=== PATIENT | female | born 1960 | race Caucasian/White ===

== ENCOUNTER 2017-05-26 16:39 | Inpatient (IN) | payer OTHER ==
[~2017-05-26] VITALS: Ht 144.8 cm; Wt 36.3 kg
[2017-05-26] MEDS ORDERED: MIRALAX 17 GM POWD.PACK PO PRN (20:15)
[2017-05-26] MEDS ORDERED: DICYCLOMINE HCL 20 MG TABLET PO PRN (20:15)
[2017-05-26] MEDS ORDERED: THIAMINE HCL 200 MG/2 ML VIAL IM ONE (20:15)
[2017-05-26] MEDS ORDERED: ONDANSETRON 4 MG/2 ML VIAL IM PRN (20:15)
[2017-05-26] MEDS ORDERED: LOPERAMIDE HCL 2 MG CAPSULE PO PRN ×2 (20:15)
[2017-05-26] MEDS ORDERED: LORAZEPAM 2 MG/1 ML VIAL IM PRN (20:15)
[2017-05-26] MEDS ORDERED: NICOTINE 14 MG/24HR PATCH TD PRN (20:15)
[2017-05-26] MEDS ORDERED: LORAZEPAM 1 MG TABLET PO PRN ×2 (20:15)
[2017-05-26] MEDS ORDERED: diphenhydrAMINE 50 MG CAPSULE PO PRN (20:15)
[2017-05-26] MEDS ORDERED: MAGNESIUM HYDROXIDE 30 ML LIQUID UDC PO PRN (20:15)
[2017-05-26] MEDS ORDERED: MAG HYDROX/AL HYDROX/SIMETH 30 ML LIQUID UDC PO PRN (20:15)
[2017-05-26] MEDS ORDERED: CLONIDINE HCL 0.1 MG TABLET PO PRN (20:15)
[2017-05-26] MEDS ORDERED: NICOTINE POLACRILEX 4 MG GUM-PK OF TEN BC PRN (20:15)
[2017-05-26 20:43] LABS: *URINE HCG, QUAL NEGATIVE (NEGATIVE)
[2017-05-26 20:45] LABS: BASOPHILS # (AUTO) 0.1 K/uL (0.0-8.0); BASOPHILS % (AUTO) 0.4 % (0.0-2.0); HEMOGLOBIN 12.1 g/dL (10.9-14.3); LYMPHOCYTES # (AUTO) 0.8 K/uL (20.0-40.0); LYMPHOCYTES % (AUTO) 5.4 % (20.5-51.5); MEAN CORPUSCULAR HEMOGLOBIN 24.5 uug (24.7-32.8); MEAN CORPUSCULAR HGB CONC 32 g/dL (32.3-35.6); MEAN CORPUSCULAR VOLUME 76.7 fL (75.5-95.3); MONOCYTES # (AUTO) 1.1 K/uL (2.0-10.0); NEUTROPHILS # (AUTO) 12.2 K/uL (1.8-8.9); NEUTROPHILS % (AUTO) 86.2 % (38.5-71.5); PLATELET COUNT (AUTO) 247 K/uL (179-408); RED BLOOD CELL COUNT(AUTO) 4.95 MIL/uL (3.63-4.92); WHITE BLOOD COUNT (AUTO) 14.2 K/uL (3.8-11.8)
[2017-05-26 20:55] LABS: BILIRUBIN,TOTAL 0.2 mg/dL (0.2-1.0); MAGNESIUM 2.1 mg/dL (1.8-2.4); POTASSIUM 4.6 mmol/L (3.5-5.1); TOTAL PROTEIN, SERUM 6.5 g/dL (6.4-8.2)
[2017-05-26] MEDS ORDERED: LORAZEPAM 1 MG TABLET PO SCH (21:00)
[2017-05-26 22:29] LABS: BAND % (MANUAL) 20 % (0-10); LYMPHOCYTES % (MANUAL) 4 % (20-40); MONOCYTES % (MANUAL) 6 % (2-10); NEUTROPHILS % (MANUAL) 70 % (42-75)
[2017-05-26] MEDS: ONDANSETRON ODT 4 MG TAB.RAPDIS SL PRN (22:48)
[2017-05-26] MEDS: BACLOFEN 20 MG TABLET PO PRN (22:48)
[2017-05-26] MEDS ORDERED: FOLI-97 PO (22:54)
[2017-05-26] MEDS ORDERED: IPRA3AMP IH (22:54)
[2017-05-26] MEDS ORDERED: ALBU8.5H8 INH (22:54)
[2017-05-26] MEDS ORDERED: MENT56CR TP (22:54)
[2017-05-26] MEDS ORDERED: ASPI1TAB32 PO (22:54)
[2017-05-26] MEDS: ACETAMINOPHEN 325 MG TABLET PO PRN (22:58)
[2017-05-26 23:02] LABS: *AMPHETAMINE, URINE NEGATIVE (NEGATIVE); *BARBITURATE, URINE NEGATIVE (NEGATIVE); *CANNABINOID, URINE NEGATIVE (NEGATIVE); *COCCAINE, URINE NEGATIVE (NEGATIVE); *OPIATE, URINE NEGATIVE (NEGATIVE); *PHENCYCLIDINE SCREEN,URINE NEGATIVE (NEGATIVE)
[2017-05-27 00:10] VITALS: BP 113/77
[2017-05-27 04:00] VITALS: BP 127/74
[2017-05-27] MEDS ORDERED: QUET200T PO (05:15)
[2017-05-27] MEDS ORDERED: Lisinopril PO (05:15)
[2017-05-27] MEDS ORDERED: Soma (05:15)
[2017-05-27] MEDS ORDERED: BACL20TA PO (05:15)
[2017-05-27] MEDS ORDERED: METH-406 PO (05:15)
[2017-05-27] MEDS ORDERED: GABA600T2 PO (05:15)
[2017-05-27] MEDS ORDERED: PANT40TA2 PO (05:15)
[2017-05-27] MEDS ORDERED: AMIT25TA9 PO (05:15)
[2017-05-27] MEDS: PANTOPRAZOLE SODIUM 40 MG TABLET.DR PO SCH (06:49)
[2017-05-27 08:00] VITALS: BP 109/72
[2017-05-27] MEDS: THIAMINE HCL 100 MG TABLET PO SCH (08:53)
[2017-05-27] MEDS: BACLOFEN 20 MG TABLET PO PRN ×3 (08:53→21:53)
[2017-05-27] MEDS: FOLIC ACID 1 MG TABLET PO SCH (08:53)
[2017-05-27] MEDS: LORAZEPAM 1 MG TABLET PO SCH ×3 (08:53→21:53)
[2017-05-27] MEDS: LISINOPRIL 10 MG TABLET PO SCH (08:54)
[2017-05-27] MEDS: MULTIVITAMINS,THERAPEUTIC TABLET PO SCH (08:54)
[2017-05-27] MEDS ORDERED: TUBERCULIN,PURIF.PROT.DERIV. 5 TU/0.1 ML TEST ID ONE (09:00)
[2017-05-27] MEDS: ALBUTEROL SULFATE 1.25 MG/3 ML NEBU NEB PRN (09:16)
[2017-05-27] MEDS ORDERED: GUAIFENESIN/DEXTROMETHORPHAN TAB.SR.12H PO PRN (11:15)
[2017-05-27] MEDS ORDERED: NORMAL SALINE NASAL 45 ML BOTTLE NS PRN (11:15)
[2017-05-27 12:00] VITALS: BP 105/56
[2017-05-27] MEDS: IBUPROFEN 400 MG TABLET PO PRN ×2 (14:21→21:53)
[2017-05-27] MEDS: GABAPENTIN 300 MG CAPSULE PO SCH ×2 (14:21→21:53)
[2017-05-27 16:00] VITALS: BP 76/43
[2017-05-27] MEDS: NEOMY/BACITRAC/POLYMI OINT 28.35 GM TUBE TOP SCH (16:49)
[2017-05-27] MEDS ORDERED: QUETIAPINE FUMARATE 100 MG TABLET PO PRN (18:45)
[2017-05-27 20:00] VITALS: BP 118/92
[2017-05-28] VITALS: BP 120/81
[2017-05-28 04:00] VITALS: BP 91/52
[2017-05-28] MEDS: PANTOPRAZOLE SODIUM 40 MG TABLET.DR PO SCH (06:44)
[2017-05-28 07:43] LABS: BILIRUBIN,DIRECT 0.1 mg/dL (0.0-0.2); BILIRUBIN,TOTAL 0.2 mg/dL (0.2-1.0); CREATININE 0.7 mg/dL (0.6-1.3); MAGNESIUM 1.9 mg/dL (1.8-2.4); POTASSIUM 4.4 mmol/L (3.5-5.1); TOTAL PROTEIN, SERUM 5.9 g/dL (6.4-8.2)
[2017-05-28 07:50] LABS: BASOPHILS % (AUTO) 0.5 % (0.0-2.0); EOSINOPHILS # (AUTO) 0.1 K/uL (0.0-0.7); EOSINOPHILS % (AUTO) 0.8 % (0.0-7.0); HEMATOCRIT 40.1 % (31.2-41.9); LYMPHOCYTES % (AUTO) 11.7 % (20.5-51.5); MEAN CORPUSCULAR HEMOGLOBIN 25.1 uug (24.7-32.8); MEAN CORPUSCULAR HGB CONC 32 g/dL (32.3-35.6); MEAN CORPUSCULAR VOLUME 77.4 fL (75.5-95.3); MONOCYTES # (AUTO) 0.6 K/uL (2.0-10.0); MONOCYTES % (AUTO) 6.3 % (0.0-11.0); NEUTROPHILS # (AUTO) 7.1 K/uL (1.8-8.9); NEUTROPHILS % (AUTO) 80.7 % (38.5-71.5); PLATELET COUNT (AUTO) 229 K/uL (179-408); RED BLOOD CELL COUNT(AUTO) 5.19 MIL/uL (3.63-4.92)
[2017-05-28 07:55] LABS: WHITE BLOOD COUNT (AUTO) 8.8 K/uL (3.8-11.8)
[2017-05-28] MEDS: FOLIC ACID 1 MG TABLET PO SCH (09:09)
[2017-05-28] MEDS: LISINOPRIL 10 MG TABLET PO SCH (09:09)
[2017-05-28] MEDS: THIAMINE HCL 100 MG TABLET PO SCH (09:09)
[2017-05-28] MEDS: GABAPENTIN 300 MG CAPSULE PO SCH ×3 (09:09→21:40)
[2017-05-28] MEDS: MULTIVITAMINS,THERAPEUTIC TABLET PO SCH (09:09)
[2017-05-28] MEDS: LORAZEPAM 1 MG TABLET PO SCH ×4 (09:09→21:40)
[2017-05-28] MEDS: NEOMY/BACITRAC/POLYMI OINT 28.35 GM TUBE TOP SCH ×2 (09:10→17:15)
[2017-05-28 09:32] VITALS: BP 123/86
[2017-05-28 10:21] LABS: BAND % (MANUAL) 1 % (0-10); EOSINOPHILS % (MANUAL) 1 % (0-8); LYMPHOCYTES % (MANUAL) 13 % (20-40); MONOCYTES % (MANUAL) 7 % (2-10); NEUTROPHILS % (MANUAL) 78 % (42-75)
[2017-05-28 12:06] LABS: HEPATITIS B SURFACE AG Negative (Negative)
[2017-05-28 12:45] VITALS: BP 102/66
[2017-05-28 17:51] VITALS: BP 90/60
[2017-05-28 20:00] VITALS: BP 112/71
[2017-05-28] MEDS: QUETIAPINE FUMARATE 100 MG TABLET PO PRN (21:40)
[2017-05-28] MEDS: BACLOFEN 20 MG TABLET PO PRN (21:40)
[2017-05-29] VITALS: BP 91/63
[2017-05-29 04:00] VITALS: BP 98/59
[2017-05-29] MEDS: PANTOPRAZOLE SODIUM 40 MG TABLET.DR PO SCH (07:03)
[2017-05-29] MEDS: MULTIVITAMINS,THERAPEUTIC TABLET PO SCH (08:29)
[2017-05-29] MEDS: FOLIC ACID 1 MG TABLET PO SCH (08:29)
[2017-05-29] MEDS: GABAPENTIN 300 MG CAPSULE PO SCH ×3 (08:29→20:13)
[2017-05-29] MEDS: THIAMINE HCL 100 MG TABLET PO SCH (08:29)
[2017-05-29] MEDS: LORAZEPAM 1 MG TABLET PO SCH ×3 (08:29→20:14)
[2017-05-29] MEDS: LISINOPRIL 10 MG TABLET PO SCH (08:30)
[2017-05-29] MEDS: NEOMY/BACITRAC/POLYMI OINT 28.35 GM TUBE TOP SCH ×2 (08:31→16:46)
[2017-05-29 08:40] VITALS: BP 97/64
[2017-05-29] MEDS ORDERED: LEVOFLOXACIN 750MG/D5W 750 MG in PREMIXED 1 EACH IV SCH (11:00)
[2017-05-29] MEDS: IV D5 1/2 NS 1000 ML 1,000 ML IV PRN ×2 (12:15→22:16)
[2017-05-29 12:57] VITALS: BP 104/75
[2017-05-29] MEDS: BACLOFEN 20 MG TABLET PO PRN ×2 (13:40→20:14)
[2017-05-29 17:42] VITALS: BP 115/81
[2017-05-29 20:00] VITALS: BP 113/90
[2017-05-29] MEDS: IBUPROFEN 400 MG TABLET PO PRN (20:13)
[2017-05-29] MEDS: QUETIAPINE FUMARATE 100 MG TABLET PO PRN (20:14)
[2017-05-29] MEDS: LACTOBACILLUS RHAMNOSUS GG 1 EACH CAPSULE PO SCH (20:14)
[2017-05-30] VITALS (7 sets, daily range): BP systolic 88–125; BP diastolic 63–92
[2017-05-30] MEDS: PANTOPRAZOLE SODIUM 40 MG TABLET.DR PO SCH (06:51)
[2017-05-30] MEDS: IV D5 1/2 NS 1000 ML 1,000 ML IV PRN ×2 (06:51→23:15)
[2017-05-30] MEDS: IBUPROFEN 400 MG TABLET PO PRN ×2 (06:56→15:05)
[2017-05-30 08:11] LABS: CREATININE 0.7 mg/dL (0.6-1.3); MAGNESIUM 1.5 mg/dL (1.8-2.4); PHOSPHOROUS 3.3 mg/dL (2.5-4.9); POTASSIUM 4.1 mmol/L (3.5-5.1)
[2017-05-30] MEDS: THIAMINE HCL 100 MG TABLET PO SCH (08:16)
[2017-05-30] MEDS: FOLIC ACID 1 MG TABLET PO SCH (08:16)
[2017-05-30] MEDS: MULTIVITAMINS,THERAPEUTIC TABLET PO SCH (08:16)
[2017-05-30] MEDS: LACTOBACILLUS RHAMNOSUS GG 1 EACH CAPSULE PO SCH ×2 (08:16→21:34)
[2017-05-30] MEDS: GABAPENTIN 300 MG CAPSULE PO SCH ×3 (08:16→21:34)
[2017-05-30] MEDS: ACETAMINOPHEN 325 MG TABLET PO PRN ×2 (08:16→21:35)
[2017-05-30] MEDS: LISINOPRIL 10 MG TABLET PO SCH (08:19)
[2017-05-30 08:24] LABS: BASOPHILS % (AUTO) 0.4 % (0.0-2.0); EOSINOPHILS # (AUTO) 0.1 K/uL (0.0-0.7); EOSINOPHILS % (AUTO) 1.6 % (0.0-7.0); HEMATOCRIT 38.7 % (31.2-41.9); HEMOGLOBIN 12.7 g/dL (10.9-14.3); LYMPHOCYTES # (AUTO) 1.2 K/uL (20.0-40.0); LYMPHOCYTES % (AUTO) 14.3 % (20.5-51.5); MEAN CORPUSCULAR HEMOGLOBIN 25.4 uug (24.7-32.8); MEAN CORPUSCULAR HGB CONC 33 g/dL (32.3-35.6); MEAN CORPUSCULAR VOLUME 77.5 fL (75.5-95.3); MONOCYTES # (AUTO) 0.7 K/uL (2.0-10.0); MONOCYTES % (AUTO) 8.3 % (0.0-11.0); NEUTROPHILS # (AUTO) 6.2 K/uL (1.8-8.9); NEUTROPHILS % (AUTO) 75.4 % (38.5-71.5); PLATELET COUNT (AUTO) 248 K/uL (179-408); WHITE BLOOD COUNT (AUTO) 8.2 K/uL (3.8-11.8)
[2017-05-30] MEDS ORDERED: LORAZEPAM 1 MG TABLET PO SCH (09:00)
[2017-05-30] MEDS: LEVOFLOXACIN 750 MG TABLET PO SCH (09:08)
[2017-05-30] MEDS: NEOMY/BACITRAC/POLYMI OINT 28.35 GM TUBE TOP SCH (09:08)
[2017-05-30] MEDS ORDERED: MAGNESIUM OXIDE 400 MG TABLET PO ONE (11:00)
[2017-05-30] MEDS: LORAZEPAM 1 MG TABLET PO SCH ×2 (15:05→21:34)
[2017-05-30] MEDS ORDERED: CLON0.1T14 PO (19:49)
[2017-05-30] MEDS ORDERED: DIPH50CA37 PO (19:49)
[2017-05-30] MEDS ORDERED: GABA-534 PO (19:49)
[2017-05-30] MEDS ORDERED: LEVO750T21 PO (19:49)
[2017-05-30] MEDS ORDERED: PANT40TA2 PO (19:49)
[2017-05-30] MEDS ORDERED: LISI10TA5 PO (19:49)
[2017-05-30] MEDS: BACLOFEN 20 MG TABLET PO PRN (21:35)
[2017-05-30] MEDS: QUETIAPINE FUMARATE 100 MG TABLET PO PRN (21:35)
[2017-05-31] VITALS: BP 106/68
[2017-05-31 04:00] VITALS: BP 114/78
[2017-05-31] MEDS: PANTOPRAZOLE SODIUM 40 MG TABLET.DR PO SCH (06:42)
[2017-05-31] MEDS: IV D5 1/2 NS 1000 ML 1,000 ML IV PRN (06:48)
[2017-05-31 08:00] VITALS: BP 132/88
[2017-05-31] MEDS ORDERED: LORAZEPAM 1 MG TABLET PO SCH (09:00)
[2017-05-31] MEDS: GABAPENTIN 300 MG CAPSULE PO SCH ×3 (09:10→20:15)
[2017-05-31] MEDS: IBUPROFEN 400 MG TABLET PO PRN ×2 (09:10→20:16)
[2017-05-31] MEDS: MULTIVITAMINS,THERAPEUTIC TABLET PO SCH (09:10)
[2017-05-31] MEDS: LEVOFLOXACIN 750 MG TABLET PO SCH (09:10)
[2017-05-31] MEDS: THIAMINE HCL 100 MG TABLET PO SCH (09:10)
[2017-05-31] MEDS: LACTOBACILLUS RHAMNOSUS GG 1 EACH CAPSULE PO SCH ×2 (09:11→20:15)
[2017-05-31] MEDS: LISINOPRIL 10 MG TABLET PO SCH (09:11)
[2017-05-31] MEDS: FOLIC ACID 1 MG TABLET PO SCH (09:11)
[2017-05-31] MEDS: ONDANSETRON ODT 4 MG TAB.RAPDIS SL PRN ×2 (10:23→20:21)
[2017-05-31] MEDS ORDERED: HYDROXYZINE PAMOATE 25 MG CAPSULE PO PRN (12:15)
[2017-05-31 12:28] VITALS: BP 104/72
[2017-05-31] MEDS ORDERED: QUETIAPINE FUMARATE 100 MG TABLET PO PRN (14:30)
[2017-05-31] MEDS: ALBUTEROL SULFATE 1.25 MG/3 ML NEBU NEB PRN ×2 (14:44→21:26)
[2017-05-31] MEDS ORDERED: METOPROLOL TARTRATE 25 MG TABLET PO ONE (15:00)
[2017-05-31] MEDS: ACETAMINOPHEN 325 MG TABLET PO PRN (15:29)
[2017-05-31 16:00] VITALS: BP 97/64
[2017-05-31 20:00] VITALS: BP 126/80
[2017-05-31] MEDS: HYDROXYZINE PAMOATE 25 MG CAPSULE PO PRN (22:10)
[2017-06-01] VITALS: BP 93/53
[2017-06-01] MEDS: BACLOFEN 20 MG TABLET PO PRN ×2 (01:55→08:50)
[2017-06-01 04:00] VITALS: BP 105/60
[2017-06-01] MEDS: PANTOPRAZOLE SODIUM 40 MG TABLET.DR PO SCH (06:56)
[2017-06-01 08:00] VITALS: BP 113/79
[2017-06-01] MEDS: GABAPENTIN 300 MG CAPSULE PO SCH ×2 (08:50→14:00)
[2017-06-01] MEDS: HYDROXYZINE PAMOATE 25 MG CAPSULE PO PRN ×2 (08:50→15:25)
[2017-06-01] MEDS: LEVOFLOXACIN 750 MG TABLET PO SCH (08:50)
[2017-06-01] MEDS: LACTOBACILLUS RHAMNOSUS GG 1 EACH CAPSULE PO SCH (08:50)
[2017-06-01] MEDS: IBUPROFEN 400 MG TABLET PO PRN ×2 (08:50→13:40)
[2017-06-01] MEDS: THIAMINE HCL 100 MG TABLET PO SCH (08:51)
[2017-06-01] MEDS: FOLIC ACID 1 MG TABLET PO SCH (08:52)
[2017-06-01] MEDS: MULTIVITAMINS,THERAPEUTIC TABLET PO SCH (08:52)
[2017-06-01] MEDS: LISINOPRIL 10 MG TABLET PO SCH (08:52)
[2017-06-01] MEDS: ALBUTEROL SULFATE 1.25 MG/3 ML NEBU NEB PRN (09:19)
[2017-06-01 14:09] VITALS: BP 97/65
[2017-06-01] MEDS: ONDANSETRON ODT 4 MG TAB.RAPDIS SL PRN (15:21)
[2017-06-01 17:15] VITALS: BP 96/66
== END 2017-06-01 18:48 | DRG 895 ==
LOC: SRC 19:21
PROVIDERS: ADMIT Internal Medicine; ATTEND Internal Medicine
PROC: HZ2ZZZZ Detoxification Services for Substance Abuse Treatment (ICD-10-PCS; principal; 2017-05-26)
PROC: HZ31ZZZ Individual Counseling for Substance Abuse Treatment, Behavioral (ICD-10-PCS; 2017-05-29)
DX: F10.232 Alcohol dependence with withdrawal with perceptual disturbance (principal); E87.8 Other disorders of electrolyte and fluid balance, not elsewhere classified; K70.10 Alcoholic hepatitis without ascites; E87.1 Hypo-osmolality and hyponatremia; F13.230 Sedative, hypnotic or anxiolytic dependence with withdrawal, uncomplicated; Y90.0 Blood alcohol level of less than 20 mg/100 ml; K25.9 Gastric ulcer, unspecified as acute or chronic, without hemorrhage or perforation; F41.9 Anxiety disorder, unspecified; F17.210 Nicotine dependence, cigarettes, uncomplicated; Z81.1 Family history of alcohol abuse and dependence; J45.20 Mild intermittent asthma, uncomplicated; Z91.89 Other specified personal risk factors, not elsewhere classified; G89.29 Other chronic pain; G47.00 Insomnia, unspecified; E86.0 Dehydration; E86.1 Hypovolemia; I10 Essential (primary) hypertension; M51.86 Other intervertebral disc disorders, lumbar region; G62.1 Alcoholic polyneuropathy
CPT/HCPCS: 36415; 70030-TC; 71045; 80307; 80346; 83605; 83735; 84100; 84703; 85025; 86580; 86592; 86705; 86803; 87040; 87340; 87806; 93005; 94640; 97116; 97530; G0480; J1956; J3411; J3490; Q0162; Q0163

== ENCOUNTER 2017-06-13 12:17 | Emergency (ER) | payer OTHER ==
[~2017-06-13] VITALS: Ht 149.9 cm; Wt 41.7 kg
[~2017-06-13 12:17] MED LIST: ALBU8.5H8 INH; ASPI1TAB32 PO; BACL20TA PO; CLON0.1T14 PO; DIPH50CA37 PO; FOLI-97 PO; GABA-534 PO; IPRA3AMP IH; LEVO750T21 PO; LISI10TA5 PO; Lisinopril PO; MENT56CR TP; METH-406 PO; PANT40TA2 PO; QUET200T PO
--- NOTE | 2017-06-13 12:45 | NUR ---
PT IS IN ROOM #2A. DR SILVESTRE EVALUATED THE PT.
[2017-06-13] MEDS ORDERED: ACET-2154 PO (12:58)
[2017-06-13] MEDS ORDERED: MULT80TA PO (12:58)
[2017-06-13] MEDS ORDERED: CALC500T13 PO (12:58)
[2017-06-13] MEDS ORDERED: BUSP10TA3 PO (12:58)
[2017-06-13] MEDS ORDERED: MELA3TAB PO (12:58)
[2017-06-13] MEDS ORDERED: ONDA4TAB5 PO (12:58)
[2017-06-13] MEDS ORDERED: AMIT10TA6 PO (12:58)
[2017-06-13] MEDS ORDERED: MAGN400O6 PO (12:58)
[2017-06-13] MEDS ORDERED: ACET-73 PO (12:58)
[2017-06-13] MEDS ORDERED: IBUP-1953 PO (12:58)
[2017-06-13] MEDS ORDERED: LOPE-156 PO (12:58)
[2017-06-13 13:00] LABS: BASOPHILS % (AUTO) 0.5 % (0.0-2.0); EOSINOPHILS # (AUTO) 0.2 K/uL (0.0-0.7); EOSINOPHILS % (AUTO) 2.7 % (0.0-7.0); HEMATOCRIT 35.4 % (31.2-41.9); HEMOGLOBIN 11.6 g/dL (10.9-14.3); LYMPHOCYTES # (AUTO) 1.4 K/uL (20.0-40.0); LYMPHOCYTES % (AUTO) 24.4 % (20.5-51.5); MEAN CORPUSCULAR HEMOGLOBIN 25.4 uug (24.7-32.8); MEAN CORPUSCULAR HGB CONC 33 g/dL (32.3-35.6); MEAN CORPUSCULAR VOLUME 77.5 fL (75.5-95.3); MONOCYTES # (AUTO) 0.7 K/uL (2.0-10.0); MONOCYTES % (AUTO) 11.5 % (0.0-11.0); NEUTROPHILS # (AUTO) 3.5 K/uL (1.8-8.9); NEUTROPHILS % (AUTO) 60.9 % (38.5-71.5); PLATELET COUNT (AUTO) 171 K/uL (179-408); RED BLOOD CELL COUNT(AUTO) 4.57 MIL/uL (3.63-4.92); WHITE BLOOD COUNT (AUTO) 5.7 K/uL (3.8-11.8)
[2017-06-13 13:21] LABS: CREATININE 0.6 mg/dL (0.6-1.3); POTASSIUM 4.4 mmol/L (3.5-5.1)
--- NOTE | 2017-06-13 13:41 | NUR ---
PT WAS D/C TO HOME. D/C INSTRUCTIONS GIVEN TO THE PT BY DR SILVESTRE.
[2017-06-13 13:42] VITALS: BP 136/88
== END 2017-06-13 13:43 | disposition home or self-care (01) ==
LOC: ER 12:17
DX: G62.1 Alcoholic polyneuropathy (principal); R60.9 Edema, unspecified; I10 Essential (primary) hypertension; J45.909 Unspecified asthma, uncomplicated; K21.9 Gastro-esophageal reflux disease without esophagitis; F17.210 Nicotine dependence, cigarettes, uncomplicated; Z79.1 Long term (current) use of non-steroidal anti-inflammatories (NSAID); Z79.82 Long term (current) use of aspirin; Z79.899 Other long term (current) drug therapy; Z79.2 Long term (current) use of antibiotics
CPT/HCPCS: 36415; 85025; A4663